=== PATIENT | female | born 1960 | race Hispanic/Latino ===

== ENCOUNTER 2017-01-28 03:40 | Emergency (ER) | payer OTHER ==
[2017-01-28 04:45] LABS: Basophils % (Auto) 0.7 % (0.0-1.8); Eosinophils % (Auto) 2.9 % (0.0-4.3); Hematocrit 39.7 % (30.3-42.9); Hemoglobin 13.2 gm/dl (10.1-14.3); Mean Corpuscular HGB Conc 33 % (30-34); Mean Corpuscular Hemoglobin 28 pg (28-32); Mean Corpuscular Volume 83 fl (79-97); Platelet Count 318 K/mm3 (140-440); Red Blood Count 4.79 M/mm3 (3.65-5.03); Red Cell Distribution Width 15.6 % (13.2-15.2); White Blood Count 8.1 K/mm3 (4.5-11.0)
[2017-01-28 05:19] LABS: Anion Gap 16 mmol/L; BUN/Creatinine Ratio 24; Blood Urea Nitrogen 17 mg/dL (7-17); Calcium 9.3 mg/dL (8.4-10.2); Carbon Dioxide 26 mmol/L (22-30); Chloride 105.6 mmol/L (98-107); Glucose 96 mg/dL (65-100); Potassium 4.2 mmol/L (3.6-5.0); Sodium 143 mmol/L (137-145)
[2017-01-28] MEDS ORDERED: MORPHINE IV PRN (10:20)
[2017-01-28] MEDS ORDERED: ZOFRAN IV PRN (10:20)
[2017-01-28] MEDS ORDERED: NITRO-BID 2% TP ONE (10:20)
[2017-01-28] MEDS ORDERED: ASPIRIN PO ONE (10:21)
--- NOTE | 2017-01-28 10:29 | Emergency Department Report ---
HPI - General Chief Complaint: Chest Pain Time Seen by Provider: 01/28/17 10:10 - HPI HPI: Room 9 The patient is a 56-year-old female presented with a chief complaint of chest pain. The patient states she was awakened this morning at 01:30 with left- sided chest pain described as dull and aching in nature. The patient states the pain has been intermittent. Patient currently denies chest pain at this moment states she last had approximately 10-15 minutes before I walked into the room. Patient states the chest pain is associated with shortness of breath and occasionally diaphoresis. Patient denies nausea or vomiting. The patient states her last stress test occurred over 5 years ago and she has never had a cardiac catheterization Location: Left chest Duration: Intermittent since 01:30 Quality: Dull/aching Severity: Currently 0/10 Modifying factors: [see above] Context: [see above] Mode of transportation: Unknown ED Past Medical Hx - Past Medical History Previous Medical History?: Yes Hx Hypertension: Yes - Surgical History Past Surgical History?: Yes Additional Surgical History: hysterectomy, bone spur removal - Family History Family history: no significant - Social History Smoking Status: Never Smoker Substance Use Type: None (denies illicit drug use), Alcohol (occasional) - Medications Home Medications: Home Medications Medication Instructions Recorded Confirmed Last Taken Type Olmesartan/Amlodipin/Hcthiazid 1 each PO DAILY 01/28/17 01/28/17 01/27/17 History [Tribenzor 20-5-12.5 mg Tablet] ED Review of Systems ROS: Stated complaint: CHEST PAIN Other details as noted in HPI Comment: All other systems reviewed and negative Constitutional: diaphoresis Eyes: denies: eye pain, eye discharge, vision change ENT: denies: ear pain, throat pain Respiratory: shortness of breath Cardiovascular: chest pain Endocrine: no symptoms reported Gastrointestinal: denies: nausea, vomiting Genitourinary: denies: urgency, dysuria, discharge Musculoskeletal: denies: back pain, joint swelling, arthralgia Skin: denies: rash, lesions Neurological: denies: headache, weakness, paresthesias Psychiatric: denies: anxiety, depression Hematological/Lymphatic: denies: easy bleeding, easy bruising Physical Exam - Physical Exam Vital Signs: Vital Signs 01/28/17 01/28/17 01/28/17 03:53 09:57 10:04 Temperature 98.1 F 98.2 F Pulse Rate 75 68 Respiratory 17 25 H 25 H Rate Blood Pressure 140/83 Blood Pressure 147/87 [Left] O2 Sat by Pulse 97 99 99 Oximetry Physical Exam: GENERAL: The patient is well-developed well-nourished female sitting on stretcher not appearing to be in acute distress. [] HEENT: Normocephalic. Atraumatic. Extraocular motions are intact. Patient has moist mucous membranes. NECK: Supple. Trachea midline CHEST/LUNGS: Clear to auscultation. There is no respiratory distress noted. HEART/CARDIOVASCULAR: Regular. There is no tachycardia. There is no gallop rub or murmur. ABDOMEN: Abdomen is soft, nontender. Patient has normal bowel sounds. There is no abdominal distention. SKIN: There is no rash. There is no edema. There is no diaphoresis. NEURO: The patient is awake, alert, and oriented. The patient is cooperative. The patient has normal speech MUSCULOSKELETAL: There is no evidence of acute injury. ED Course Vital Signs 01/28/17 01/28/17 01/28/17 03:53 09:57 10:04 Temperature 98.1 F 98.2 F Pulse Rate 75 68 Respiratory 17 25 H 25 H Rate Blood Pressure 140/83 Blood Pressure 147/87 [Left] O2 Sat by Pulse 97 99 99 Oximetry - Consultations Consultation #1: 01/28/17 10:[address] [facility] called 01/28/17 10:[address] Kenny. Will call back ED Medical Decision Making - Lab Data Result diagrams: 01/28/17 04:27 01/28/17 04:27 Laboratory Tests 01/28/17 01/28/17 01/28/17 04:27 04:27 06:49 WBC 8.1 RBC 4.79 Hgb 13.2 Hct 39.7 MCV 83 MCH 28 MCHC 33 RDW 15.6 H Plt Count 318 Lymph % (Auto) 44.5 H [place] % (Auto) 11.8 H Eos % (Auto) 2.9 Baso % (Auto) 0.7 Lymph # 3.6 [place] # 1.0 H Eos # 0.2 Baso # 0.1 Seg Neutrophils % 40.1 Seg Neutrophils # 3.3 Sodium 143 Potassium 4.2 Chloride 105.6 Carbon Dioxide 26 Anion Gap 16 BUN 17 Creatinine 0.7 Estimated GFR > 60 BUN/Creatinine Ratio 24 Glucose 96 Calcium 9.3 Troponin T < 0.010 < 0.010 01/28/17 09:44 WBC RBC Hgb Hct MCV MCH MCHC RDW Plt Count Lymph % (Auto) [place] % (Auto) Eos % (Auto) Baso % (Auto) Lymph # [place] # Eos # Baso # Seg Neutrophils % Seg Neutrophils # Sodium Potassium Chloride Carbon Dioxide Anion Gap BUN Creatinine Estimated GFR BUN/Creatinine Ratio Glucose Calcium Troponin T < 0.010 - EKG Data -: EKG Interpreted by Me EKG shows normal: sinus rhythm Rate: normal - EKG Data When compared to previous EKG there are: previous EKG unavailable Interpretation: nonspecific ST-T wave kulwinder (T-wave inversion in lead 3) - Radiology Data Radiology results: image reviewed (chest x-ray) interpreted by me: Chest x-ray-no focal infiltrates, no pneumothorax - Differential Diagnosis ACS, GERD, pericarditis Critical care attestation.: If time is entered above; I have spent that time in minutes in the direct care of this critically ill patient, excluding procedure time. ED Disposition Clinical Impression: Chest pain Disposition: [id number]/TX-70 ANOTHER TYPE HLTHCARE Is pt being admited?: No Does the pt Need Aspirin: Yes Condition: Fair Instructions: Chest Pain (ED) Referrals: [facility] [Other] - 3-5 Days Time of Disposition: 12:23 (awaiting transport)
--- NOTE | 2017-01-28 11:06 | XRay Report ---
CHEST ONE VIEW INDICATION: Chest pain. COMPARISON: None similar at this institution. FINDINGS: Portable, single, frontal chest radiograph demonstrates normal cardiomediastinal silhouette. Clear lungs. Unremarkable bones. Extrinsic EKG leads. CONCLUSION: No acute disease in the chest. Thank you for the opportunity to participate in this patient's care.
[2017-01-28 12:22] VITALS: BP 138/85
== END 2017-01-28 12:45 | disposition other institution (70) ==
LOC: ED 03:40
DX: R07.89 Other chest pain (principal); I10 Essential (primary) hypertension
CPT/HCPCS: 36415; 71010; 80048; 84484; 85025; 93005; 93010; J2405